=== PATIENT | female | born 1955 | race Caucasian/White ===

== ENCOUNTER 2016-05-04 21:22 | Emergency (ER) | payer OTHER ==
[~2016-05-04] VITALS: Ht 167.6 cm; Wt 65.0 kg
[~2016-05-04 21:22] MED LIST: PREV30CA36
[2016-05-04 21:23] VITALS: BP 171/74; PULSE 92; RESP 18; TEMP 97.9; O2SAT 99
[2016-05-04] MEDS ORDERED: IBUP800T23 PO (22:14)
[2016-05-04] MEDS ORDERED: SILV1CRE80 TOPICAL (22:14)
[2016-05-04] MEDS ORDERED: IBUPROFEN 800 MG TAB PO ONE (22:15)
[2016-05-04] MEDS ORDERED: SILVER SULFADIAZINE 1% CR 50 GM JAR TOPICAL ONE (22:15)
--- NOTE | 2016-05-04 22:16 | PD ---
HPI Chief Complaint: Burn Time Seen by Provider: 22:15 Travel History International Travel<30 days: No Contact w/Intl Traveler<30days: No Traveled to known affect area: No History of Present Illness HPI 61-year-old white female presents to emergency Department from work for evaluation of a burn. 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 She states that this had drained onto her left leg and down onto her foot. She has subsequently developed a thermal burn. She states that she has not had a tetanus shot over 5 years. She states the pain is mild to moderate. No other injuries. There is no palliative or productive. Then put Silvadene on the wound. No other injuries. PFSH Past Medical History Medical History: Denies Significant Hx Diminished Hearing: No Tetanus Vaccination: > 5 Years Influenza Vaccination: No Past Surgical History Appendectomy: Yes Hysterectomy: Yes Social History Alcohol Use: No Tobacco Use: No Substance Use: No Allergies-Medications (Allergen,Severity, Reaction): Coded Allergies: Codeine (Verified Allergy, Mild, 05/04/16) Uncoded Allergies: NO PAIN RX (Allergy, Mild, 03/12/06) Reported Meds & Prescriptions Reported Meds & Active Scripts Active Silver Sulfadiazine Topical (Silver Sulfadiazine) 1 % Cream 1 Applic TOPICAL DAILY Ibuprofen 800 Mg Tab 800 Mg PO Q8H PRN Review of Systems Except as stated in HPI: all other systems reviewed are Neg Physical Exam Narrative GENERAL: Well-developed, well-nourished in no apparent distress. Nontoxic appearing. HEAD: Normocephalic, atraumatic. EYES: Pupils equal round and reactive. Extraocular motions intact. No scleral icterus. No injection or drainage. ENT: Nose clear. Throat without erythema, tonsillar hypertrophy or exudate. Uvula midline. Airway patent. NECK: Trachea midline. Supple, nontender, moves head freely. No central bony tenderness or spasm. CARDIOVASCULAR: Regular rate and rhythm without murmurs, gallops, or rubs. RESPIRATORY: Clear to auscultation. Breath sounds equal bilaterally. No wheezes , rales, or rhonchi. GASTROINTESTINAL: Abdomen soft, non-tender, nondistended. No hepato-splenomegaly , or palpable masses. No guarding. EXTREMITIES: No clubbing, cyanosis, or edema. No joint tenderness. BACK: Nontender without deformity. No flank tenderness. NEUROLOGICAL: Awake, alert and oriented x 3 .Cranial nerves grossly intact. Motor and sensory grossly within normal limits. Normal speech. Skin: The patient has 5-8% total body surface area first-degree burn to the anterior left thigh with a area on the left anterior pretibial region and dorsum of the left foot. There is approximately 1% total body surface area second-degree burn. Data Data Last Documented VS Vital Signs Date Time Temp Pulse Resp B/P Pulse Ox O2 Delivery O2 Flow Rate FiO2 05/04/16 22:10 18 Room Air 05/04/16 21:23 97.9 92 171/74 99 Orders Ibuprofen (Motrin) (05/04/16 22:15) Silver Sulfadia 1% Crm (50 Gm) (Silvaden (05/04/16 22:15) Tetanus/Diphtheria Tox Adult (Tetanus/Di (05/04/16 22:30) MDM Medical Decision Making Medical Screen Exam Complete: Yes Emergency Medical Condition: Yes Medical Record Reviewed: Yes Differential Diagnosis Differential diagnoses: First-degree burn, second-degree burn, third-degree burn Narrative Course This is a 5-8% total body surface area first-degree burn and 1% total body surface area second-degree burn. Diagnosis Primary Impression: first and second-degree thermal burn Patient Instructions: General Instructions Additional Instructions: Daily wound care with soap, water, Silvadene. Keep clean and dry. Elevation. Motrin for pain. Recheck in the next 2-3 days with workman's comp or return to the ER if any problems. Med/Other Pt SpecificInfo: Prescription(s) given, Wound Care Scripts Silver Sulfadiazine Topical 1 % Cream1 Applic TOPICAL DAILY #400 TUBE Ref 0 Prov:Shanda Mulligan MD 05/04/16 Ibuprofen 800 Mg Qto757 Mg PO Q8H PRN (Pain/Inflammation) #30 TAB Prov:Shanda Mulligan MD 05/04/16 Disposition: 01 DISCHARGE HOME Condition: Stable Alonso Call May 04, 2016 22:15
[2016-05-04] MEDS ORDERED: TETANUS/DIPHTHERIA TOXOID ADULT 0.5 ML VIAL IM ONE (22:30)
== END 2016-05-04 22:52 | disposition home or self-care (01) ==
LOC: NEPB 21:22
DX: T24.202A Burn of second degree of unspecified site of left lower limb, except ankle and foot, initial encounter (principal); T24.112A Burn of first degree of left thigh, initial encounter; Z23 Encounter for immunization; T31.0 Burns involving less than 10% of body surface; X10.0XXA Contact with hot drinks, initial encounter; Y99.0 Civilian activity done for income or pay
CPT/HCPCS: 16020; 90471; 90714